=== PATIENT | female | born 1965 | race African-American/Black ===

== ENCOUNTER → 2024-06-02 | Outpatient (CLI) | payer MEDICAID ==
[~2024-06-02] MED LIST: ALBUTEROL SULF 2.5 MG/0.5ML(0.5%) NEB SOLN ONE
== END | disposition home or self-care (01) ==
LOC: RT 09:09
PROVIDERS: ATTEND Internal Medicine Pulmonary Disease
DX: R06.9 Unspecified abnormalities of breathing (principal); R06.00 Dyspnea, unspecified; J44.9 Chronic obstructive pulmonary disease, unspecified
CPT/HCPCS: 94060; 94618; 94727; 94729